=== PATIENT | female | born 1950 | race Caucasian/White ===

== ENCOUNTER 2017-11-07 11:47 | Outpatient (CLI) | payer MEDICARE ==
[2017-11-07 15:12] LABS: Bilirubin Negative (Negative); Blood, Urine Negative (Negative); Clarity CLEAR (Clear); Glucose, Urine (Dipstick) Negative (Negative); Leukocyte Small (Negative); Nitrite Positive (Negative); Protein, Urine (Dipstick) Negative (Neg-Trace); Specific Gravity, Urine 1.009 (1.002-1.036); Urobilinogen 0.2 mg/dL (0.2-1.0)
[2017-11-07 15:13] LABS: #Basophils 0.1 thou/uL (0.0-0.2); #Eosinphils 0.1 thou/uL (0.0-0.7); #Lymphocytes 2.1 thou/uL (1.20-3.40); #Monocytes 0.7 thou/uL (0.11-0.59); #Neutrophils 5.5 thou/uL (1.40-6.50); %Basophils 0.6 % (0.0-1.0); %Eosinophils 1.7 % (0.0-10.0); %Lymphocytes 24.9 % (21.0-51.0); %Monocytes 8.2 % (0.0-10.0); %Neutrophils 64.5 % (42.0-75.0); Hemoglobin 10.8 g/dL (12.0-16.0); Mean Corpuscular Hemoglobin 25.3 pg (27.0-31.0); Mean Corpuscular Volume 81.5 fl (81.0-99.0); Mean Platelet Volume 7.1 fL (7.4-10.4); Platelet Count 368 thou/uL (130-400); RBC Distribution Width 15.5 % (11.5-14.5); Red Blood Cell (RBC) Count 4.26 mill/uL (4.20-5.40); White Blood Cell (WBC) Count 8.6 thou/uL (4.8-10.8)
[2017-11-07 15:18] LABS: Bacteria/HPF 4+ HPF (None Seen); Hyaline Casts/LPF 0-3 HYALINE CAST LPF (0-3 Hyaline); Pathc Cast-AUWi Flag 0.13 (0-2.49); RBC/HPF 0-3 HPF (0-3); Squamous Epithelial 0-3 HPF (0-3)
[2017-11-07 15:20] LABS: PTT 27.4 SEC (22.9-36.1); Prothrombin Time 12.9 SEC (12.0-14.7)
[2017-11-07 15:30] LABS: Anion Gap 13 mmol/L (10-20); BUN (Urea Nitrogen) 19 mg/dL (9.8-20.1); Calc. Creatinine Clearance 0 mL/min (70-130); Calcium 9.5 mg/dL (7.8-10.44); Carbon Dioxide 27 mmol/L (23-31); Chloride 102 mmol/L (98-107); Estimated GFR-MDRD 70; Glucose 77 mg/dL (80-115); Potassium 4.2 mmol/L (3.5-5.1); Sodium 138 mmol/L (136-145)
--- NOTE | 2017-11-07 23:46 | EKG ---
Test Reason : Blood Pressure : / mmHG Vent. Rate : 074 BPM Atrial Rate : 074 BPM P-R Int : 146 ms QRS Dur : 082 ms QT Int : 396 ms P-R-T Axes : 066 036 051 degrees QTc Int : 439 ms Normal sinus rhythm Normal ECG No previous ECGs available Confirmed by Girish HICKEY ([id number]) on 11/07/2017 11:45:51 PM Referred By: IERO Confirmed By:Girish HICKEY
== END 2017-11-07 11:48 | disposition home or self-care (01) ==
LOC: LABBT 11:47
PROVIDERS: ATTEND Orthopaedic Surgery
DX: Z01.812 Encounter for preprocedural laboratory examination (principal); Z01.810 Encounter for preprocedural cardiovascular examination; M17.11 Unilateral primary osteoarthritis, right knee; Z88.5 Allergy status to narcotic agent; Z88.1 Allergy status to other antibiotic agents
CPT/HCPCS: 80048; 81001; 85025; 85610; 85730; 86850; 86900; 86901; 93005; 93010

== ENCOUNTER 2017-11-13 06:30 | Day surgery (SDC) | payer MEDICARE ==
[2017-11-13] MEDS ORDERED: CEFAZOLIN/Water 2 GM/20 ML SYRINGE ONE (07:36)
[2017-11-13] MEDS ORDERED: Tranexamic Acid 1,000 MG/100 ML BAG ONE ×2 (07:36→11:39)
[2017-11-13] MEDS ORDERED: Vancomycin HCl 1.5 GM, Admixture Fee 1 EACH in Sodium Chloride 0.9% 250 ML 300 ML IVPB SCH (07:45)
[2017-11-13] MEDS ORDERED: Ropivacaine 0.2% HCl/PF 40 ML ONE (08:23)
[2017-11-13] MEDS ORDERED: Fentanyl 100 MCG/2 ML VIAL ONE ×4 (08:23→13:16)
[2017-11-13] MEDS ORDERED: Midazolam HCl 2 mg/2 ml Vial ONE (08:23)
[2017-11-13] MEDS ORDERED: Promethazine HCl 25 MG/ML VIAL IM PRN ×3 (08:46→11:38)
[2017-11-13] MEDS ORDERED: Zolpidem Tartrate 5 MG TAB PO PRN ×2 (08:46→11:38)
[2017-11-13] MEDS ORDERED: Ondansetron HCl/PF 4 MG/2 ML Vial IVP PRN ×3 (08:46→11:38)
[2017-11-13] MEDS ORDERED: HYDROcodone/Acetaminophen 10/325 mg Tablet PO PRN (08:46)
[2017-11-13] MEDS ORDERED: Ropivacaine 0.2% 550 ML 550 ML NERVE BLCK SCH (08:46)
[2017-11-13] MEDS ORDERED: traMADol HCl 50 MG TAB PO PRN ×3 (08:46→11:38)
[2017-11-13] MEDS ORDERED: Bupivacaine PF 0.5% 30 ML VIAL ONE (09:29)
[2017-11-13] MEDS ORDERED: Promethazine HCl 25 MG/ML VIAL SLOW IVP PRN (10:09)
[2017-11-13] MEDS ORDERED: Acetaminophen 325 MG TAB PO PRN (11:38)
[2017-11-13] MEDS ORDERED: diphenhydrAMINE 25 MG CAP PO PRN (11:38)
[2017-11-13 11:39] LABS: Bilirubin Negative (Negative); Blood, Urine Negative (Negative); Clarity CLEAR (Clear); Glucose, Urine (Dipstick) Negative (Negative); Leukocyte Negative (Negative); Nitrite Negative (Negative); Protein, Urine (Dipstick) Negative (Neg-Trace); Specific Gravity, Urine 1.013 (1.002-1.036); Urobilinogen 0.2 mg/dL (0.2-1.0)
[2017-11-13 11:42] LABS: Bacteria/HPF None Seen HPF (None Seen); Hyaline Casts/LPF 0-3 HYALINE CAST LPF (0-3 Hyaline); RBC/HPF None Seen HPF (0-3); Squamous Epithelial None Seen HPF (0-3); WBC/HPF None Seen HPF (0-3)
[2017-11-13] MEDS ORDERED: Tranexamic Acid 1,000 MG in Sodium Chloride 0.9% 100 ML IVPB SCH (11:45)
[2017-11-13] MEDS ORDERED: Ropivacaine 0.5% HCl/PF (150 MG/30 ML VIAL) ONE (11:59)
--- NOTE | 2017-11-13 12:23 | OP ---
DATE OF PROCEDURE: 11/13/2017 PREOPERATIVE DIAGNOSIS: Right knee osteoarthrosis with valgus deformity. POSTOPERATIVE DIAGNOSIS: Right knee osteoarthrosis with valgus deformity. PROCEDURE PERFORMED: Right total knee replacement using [employer] pinless navigation. SURGEON: Nigel Mari M.D. FURNITURE DIPPER: Yeison Nicole PA-C. BLOOD LOSS: Minimal. COMPLICATIONS: None. ANESTHESIA: She had general anesthetic. She had a preoperative block. IMPLANTS: To the right knee is a [employer] total knee system. The femur was a size 5 crucia te retaining size 5 femur, her tibial baseplate was a universal size 4 tibial baseplate. We used a 4 x 9 mm X3 tibial bearing and an asymmetric 27 x 8 X3 patella. DISPOSITION: She did go to the recovery room in stable condition. INDICATIONS: A 67-year-old female with multiple medical conditions who presents with unrelenting omer n to the right knee. At this time, she wished to have her knee replaced. Of note, preoperatively wi th the patient asleep, her range of motion was approximately 10 to 85 or 90 degrees. Postoperatively on the table, she was full extension to 125. PROCEDURE IN DETAIL: After all appropriate consent forms were explained and signed, the patient was t aken back to the Operating Room and at this time was given general anesthetic. Once the level of anes thesia was appropriate, a well-padded tourniquet was placed on the right leg and the leg was then pre pped and draped in standard surgical fashion. The limb was exsanguinated and tourniquet taken up to 3 00 mmHg. Midline incision was made with a 10 blade down through the skin and subcutaneous tissue. Bov ie electrocautery was used to coagulate any brisk venous bleeding. A new blade was used to make a med ial parapatellar arthrotomy. Small subperiosteal release was performed medially and excess fat pad wa s removed. The knee was flexed up to gain access to the femur. The femur was navigated and distal fem oral resection was made. Epicondylar access was used to align our sizing jig and this was pinned in p lace. We sized our femur to be a size 4, 4:1 cutting block was applied and pinned. Anterior and poste rior chamfer cuts were then made. We navigated out our proximal tibia and made our proximal tibial re section. Spreaders were used to remove any posterior osteophytes off the back of the femur as well as remaining meniscal tissue. A long alignment jorge was then used to achieve correct rotation of our tib ial baseplate and a size 4 was chosen. This was pinned in place. We trialed the polyethylene and a 4 x 9 mm X3 polyethylene gave us full extension and good stability throughout range of motion. Two towe l clips and a saw were used to cut our patella. Three lug nuts were drilled and 27 x 8 X3 patella was trialed which sat nicely in the trochlear groove. We then drilled our femur and punched our tibia. A ll components were removed. The knee was thoroughly irrigated and dried. Cement was mixed into the ce ment gun on the back table. Components were then placed. The knee was held out in full extension unti l the cement had dried. All excess bone cement was removed. Multiple #2 Vicryl stitches as well as a Quill was used to close our extensor mechanism. 0 Quill followed by a running Monoderm was then used to close the skin. Surgicel glue was then used on the skin. Once this had dried, soft tissue dressin g was applied to the limb, tourniquet was let down, and the toes pinked up nicely. The patient was t hen awakened and taken to the Recovery Room in stable condition. All counts were correct at the end o f the case. The patient did receive preoperative IV antibiotics. The patient was injected with Expar el for postoperative pain relief.
[2017-11-13] MEDS ORDERED: Acetaminophen 1,000 MG in Premix Bag 1 BAG IVPB PRN (12:29)
[2017-11-13] MEDS ORDERED: Ketorolac Tromethamine 30 MG/ML VIAL ONE (12:37)
[2017-11-13] MEDS ORDERED: Ondansetron HCl/PF 4 MG/2 ML Vial ONE (12:37)
[2017-11-13] MEDS ORDERED: PROPOFOL 200 MG/20 ML VIAL ONE (12:37)
[2017-11-13] MEDS ORDERED: Dextrose 5% in Water 1,000 ML IV PRN (13:54)
[2017-11-13] MEDS ORDERED: Insulin Regular 300 UNITS/3 ML VIAL SC PRN ×2 (13:54)
[2017-11-13] MEDS ORDERED: Dextrose 50% Abboject 50 ML SYRINGE SLOW IVP PRN (13:54)
--- NOTE | 2017-11-13 13:58 | PDOC.PN ---
- Subjective Encounter Start Date: 11/13/17 Encounter Start Time: 13:30 Patient seen and examined in PACU. No new complaints. Follows Sammi Rocha. No overnight events - Objective MAR Reviewed: Yes EKG Reviewed by me: Yes (Tele SR) Phys Exam - Physical Examination Constitutional: NAD Respiratory: no wheezing, no rales, no rhonchi Cardiovascular: RRR, no rub Gastrointestinal: soft, non-tender, positive bowel sounds Musculoskeletal: no edema Neurological: non-focal, moves all 4 limbs Dx/Plan - Plan DVT proph w/SCDs IMPRESSION: 1. DM2 2. Diabetic Neuropathy 3. HTN 4. DJD 5. Overactive bladder / CKD 3/ Dyslipidemia / GERD PLAN: * Add mild sliding scale * Cont Gabapentin (takes 3 times daily - ordered for daily - will add PRN) * Cont Lis-HCTZ with holding parameters * Cont Metformin * Cont Oxybutinin * PRN BP meds * Pt is not on Statins - PCP to address. * Resume PPI * Full code. Makes her own decision with the help of . * Will follow. Thank you for this consultation. Laboratory Tests 07/24/17 07/24/17 11/07/17 10:15 10:15 12:43 BUN 19 Creatinine 0.82 Hemoglobin A1c 5.9 Triglycerides 224 H Cholesterol 239 H LDL Cholesterol, Calc 130 HDL Cholesterol 64 Review of Systems - Review of Systems Respiratory: negative: Cough, Dry, Shortness of Breath, Hemoptysis, SOB with Excertion, Pleuritic Pain, Sputum, Wheezing Cardiovascular: negative: chest pain, palpitations, orthopnea, paroxysmal nocturnal dyspnea, edema, light headedness Gastrointestinal: negative: Nausea, Vomiting, Abdominal Pain, Diarrhea, Constipation, Melena, Hematochezia - Medications/Allergies Allergies/Adverse Reactions: Allergies Allergy/AdvReac Type Severity Reaction Status Date / Time codeine Allergy WELANH, Verified 11/07/17 12:09 RASH, ITCHING, N/V Tetracyclines Allergy Verified 11/07/17 12:09 Medications: Current Medications Acetaminophen (Tylenol) 650 mg PO Q4H PRN PRN Reason: YING/ T > 101F; Mild Pain (1-3) Hydrocodone Bitart/Acetaminophen ([place] 10/325) 1 tab PO Q4H PRN PRN Reason: Pain (1-3) Hydrocodone Bitart/Acetaminophen ([place] 10/325) 2 tab PO Q4H PRN PRN Reason: PAIN (4-6) Aspirin (Aspirin) 325 mg PO BID [facility] Cefazolin Sodium (Ancef) 2 gm SLOW IVP 0700,1500,2300 [facility] Stop: 11/13/17 23:01 Dextrose/Water (Dextrose 50%) 25 gm SLOW IVP PRN PRN PRN Reason: Hypoglycemia Diphenhydramine HCl (Benadryl) 25 mg PO Q6H PRN PRN Reason: Itching Diphenhydramine HCl (Benadryl) 25 mg PO DAILY [facility] Fentanyl (Sublimaze) 50 mcg IV Q1H PRN PRN Reason: Pain Ferrous Gluconate (Fergon) 324 mg PO BID [facility] Gabapentin (Neurontin) 300 mg PO QAM [facility] Gabapentin (Neurontin) 300 mg PO TID PRN PRN Reason: Neuropathy Glucagon (Glucagon) 1 mg IM PRN PRN PRN Reason: Hypoglycemia Lisinopril/HCTZ (Prinizide 20-25) 1 tab PO QAM [facility] Vancomycin HCl 1.5 gm/Miscellaneous Medication 1 each/ Sodium Chloride 300 mls @ 200 mls/hr IVPB WILLCALL [facility] Ropivacaine (Ropivacaine 0.2% 550 Ml) 550 mls @ 0 mls/hr NERVE BLCK INF TYRONE PRN Reason: As Directed Sodium Chloride (Normal Saline 0.9%) 1,000 mls @ 100 mls/hr IV .Q10H [facility] Tranexamic Acid 1,000 mg/ (Sodium Chloride) 110 mls @ 200 mls/hr IVPB ONE [facility] Stop: 11/13/17 14:00 Vancomycin HCl 1.5 gm/ Sodium (Chloride) 300 mls @ 200 mls/hr IVPB 1900 [facility] Stop: 11/13/17 20:29 Acetaminophen 1,000 mg/ Device 100 mls @ 400 mls/hr IVPB Q6H PRN PRN Reason: Fever/Mild Pain Stop: 11/14/17 12:30 Dextrose/Water (D5w) 1,000 mls @ 0 mls/hr IV .Q0M PRN; As Directed PRN Reason: Hypoglycemia Insulin Human Regular (Humulin R) 0 units SC .MILD SLIDING SCALE PRN PRN Reason: Mild Correctional Scale Insulin Human Regular (Humulin R) 0 units SC .BEDTIME SLIDING SC PRN PRN Reason: Bedtime Correctional Scale Iron/Minerals/Multivitamins (Theragran M) 1 tab PO DAILY [facility] Ketorolac Tromethamine (Toradol) 15 mg IVP Q6HR [facility] Stop: 11/15/17 06:01 Metformin HCl (Glucophage) 500 mg PO BID [facility] Ondansetron HCl (Zofran) 4 mg IVP Q6H PRN PRN Reason: Nausea/Vomiting Oxybutynin Chloride (Ditropan) 5 mg PO QAM [facility] Pantoprazole Sodium (Protonix) 40 mg PO DAILY [facility] Promethazine HCl (Phenergan) 12.5 mg IM Q4H PRN PRN Reason: Nausea/Vomiting Senna/Docusate Sodium (Senokot S) 2 tab PO BID [facility] Sodium Chloride (Flush - Normal Saline) 10 ml IVF PRN PRN PRN Reason: Saline Flush Tramadol HCl (Ultram) 100 mg PO Q6H PRN PRN Reason: Mild Pain (1-3) Zolpidem Tartrate (Ambien) 5 mg PO HSPRN PRN PRN Reason: Insomnia
[2017-11-13] MEDS ORDERED: hydrALAZINE 20 MG/ML VIAL SLOW IVP PRN (14:04)
[2017-11-13] MEDS: Fentanyl 100 MCG/2 ML VIAL IV PRN ×2 (14:14→15:15)
[2017-11-13] MEDS: Sodium Chloride 0.9% 1,000 ML IV SCH ×2 (14:26→22:45)
[2017-11-13] MEDS: Ketorolac Tromethamine 30 MG/ML VIAL IVP SCH ×2 (15:01→18:55)
[2017-11-13] MEDS: Gabapentin 300 MG CAP PO PRN (15:15)
[2017-11-13] MEDS: HYDROcodone/Acetaminophen 10/325 mg Tablet PO PRN (16:06)
[2017-11-13] MEDS: CEFAZOLIN/Water 2 GM/20 ML SYRINGE SLOW IVP SCH (16:08)
[2017-11-13] MEDS ORDERED: Vancomycin HCl 1.5 GM in Sodium Chloride 0.9% 250 ML 300 ML IVPB SCH (19:00)
[2017-11-13 20:07] VITALS: BMI 32.3
[2017-11-13] MEDS: Ferrous Gluconate 324 MG TAB PO SCH (20:34)
[2017-11-13] MEDS: Aspirin 325 MG TAB PO SCH (20:35)
[2017-11-13] MEDS: Senokot S 8.6-50 MG TAB PO SCH (20:35)
[2017-11-13] MEDS: metFORMIN 500 MG TAB PO SCH (20:35)
[2017-11-14] MEDS: CEFAZOLIN/Water 2 GM/20 ML SYRINGE SLOW IVP SCH
[2017-11-14] MEDS: Ketorolac Tromethamine 30 MG/ML VIAL IVP SCH ×5 (00:17→23:45)
[2017-11-14 04:35] LABS: Hemoglobin 8.2 g/dL (12.0-16.0); Mean Corpuscular Hemoglobin 25.6 pg (27.0-31.0); Mean Corpuscular Volume 80.2 fl (81.0-99.0); Mean Platelet Volume 6.6 fL (7.4-10.4); Platelet Count 233 thou/uL (130-400); RBC Distribution Width 15.1 % (11.5-14.5); Red Blood Cell (RBC) Count 3.19 mill/uL (4.20-5.40); White Blood Cell (WBC) Count 6.6 thou/uL (4.8-10.8)
[2017-11-14] MEDS: Sodium Chloride 0.9% 1,000 ML IV SCH ×2 (05:55→19:39)
[2017-11-14] MEDS: Aspirin 325 MG TAB PO SCH ×2 (08:03→21:06)
[2017-11-14] MEDS: Ferrous Gluconate 324 MG TAB PO SCH ×2 (08:04→21:07)
[2017-11-14] MEDS: Gabapentin 300 MG CAP PO SCH (08:04)
[2017-11-14] MEDS: Oxybutynin 5 MG TAB PO SCH (08:04)
[2017-11-14] MEDS: metFORMIN 500 MG TAB PO SCH ×2 (08:04→21:07)
[2017-11-14] MEDS: diphenhydrAMINE 25 MG CAP PO SCH (08:04)
[2017-11-14] MEDS: Senokot S 8.6-50 MG TAB PO SCH ×2 (08:05→21:07)
[2017-11-14] MEDS: Lisinopril/Hydrochlorothiazide 20/25 mg Tablet PO SCH (08:05)
[2017-11-14] MEDS: Multivitamin W/ Minerals 1 TAB PO SCH (08:07)
[2017-11-14] MEDS ORDERED: Lisinopril/Hydrochlorothiazide 20/25 mg Tablet PO SCH (09:00)
[2017-11-14] MEDS: HYDROcodone/Acetaminophen 10/325 mg Tablet PO PRN ×2 (13:07→19:02)
[2017-11-14] MEDS: Gabapentin 300 MG CAP PO PRN (19:02)
[2017-11-15] MEDS: HYDROcodone/Acetaminophen 10/325 mg Tablet PO PRN ×2 (03:03→08:34)
[2017-11-15] MEDS: Gabapentin 300 MG CAP PO PRN (03:09)
[2017-11-15] MEDS: Sodium Chloride 0.9% 1,000 ML IV SCH (03:14)
[2017-11-15] MEDS: Ketorolac Tromethamine 30 MG/ML VIAL IVP SCH (05:09)
[2017-11-15 06:24] LABS: Hemoglobin 7.9 g/dL (12.0-16.0); Mean Corpuscular HGB CONC 32.2 g/dL (32.0-36.0); Mean Corpuscular Hemoglobin 25.7 pg (27.0-31.0); Mean Corpuscular Volume 79.9 fl (81.0-99.0); Mean Platelet Volume 6.7 fL (7.4-10.4); Platelet Count 235 thou/uL (130-400); RBC Distribution Width 15.3 % (11.5-14.5); Red Blood Cell (RBC) Count 3.06 mill/uL (4.20-5.40); White Blood Cell (WBC) Count 6.6 thou/uL (4.8-10.8)
[2017-11-15] MEDS: Aspirin 325 MG TAB PO SCH (08:30)
[2017-11-15] MEDS: Gabapentin 300 MG CAP PO SCH (08:31)
[2017-11-15] MEDS: Lisinopril/Hydrochlorothiazide 20/25 mg Tablet PO SCH (08:31)
[2017-11-15] MEDS: diphenhydrAMINE 25 MG CAP PO SCH (08:32)
[2017-11-15] MEDS: metFORMIN 500 MG TAB PO SCH (08:32)
[2017-11-15] MEDS: Ferrous Gluconate 324 MG TAB PO SCH (08:32)
[2017-11-15] MEDS: Multivitamin W/ Minerals 1 TAB PO SCH (08:32)
[2017-11-15] MEDS: Senokot S 8.6-50 MG TAB PO SCH (08:33)
[2017-11-15] MEDS: Oxybutynin 5 MG TAB PO SCH (08:33)
[2017-11-15 08:35] VITALS: BP 155/71
[2017-11-15 10:38] VITALS: TEMP 97.1
== END 2017-11-15 12:48 | disposition home health service (06) ==
LOC: SDC 06:30 → SJJU 11:38 → EDSTATUS 13:00 → SDC 11-15 12:48
PROVIDERS: ATTEND Orthopaedic Surgery
PROC: 0SRC069 Replacement of Right Knee Joint with Oxidized Zirconium on Polyethylene Synthetic Substitute, Cemented, Open Approach (ICD-10-PCS; principal; 2017-11-13)
DX: M17.11 Unilateral primary osteoarthritis, right knee (principal); M21.061 Valgus deformity, not elsewhere classified, right knee; E11.40 Type 2 diabetes mellitus with diabetic neuropathy, unspecified; E78.5 Hyperlipidemia, unspecified; E11.22 Type 2 diabetes mellitus with diabetic chronic kidney disease; I12.9 Hypertensive chronic kidney disease with stage 1 through stage 4 chronic kidney disease, or unspecified chronic kidney disease; N18.3 Chronic kidney disease, stage 3 (moderate); K21.9 Gastro-esophageal reflux disease without esophagitis; N32.81 Overactive bladder; Z79.82 Long term (current) use of aspirin; Z79.1 Long term (current) use of non-steroidal anti-inflammatories (NSAID); Z79.84 Long term (current) use of oral hypoglycemic drugs; Z79.899 Other long term (current) drug therapy; Z88.1 Allergy status to other antibiotic agents; Z88.5 Allergy status to narcotic agent; Z98.84 Bariatric surgery status; Z90.89 Acquired absence of other organs; Z90.710 Acquired absence of both cervix and uterus; Z98.891 History of uterine scar from previous surgery; Z98.890 Other specified postprocedural states
CPT/HCPCS: 27447; 81001; 82962; 85027; 87086; 96374; 97116 ×2; 97139 ×2; 97150; 97530; A4306; C1713; C1776; G8978; G8979; 36415; 36416; J0131; J1815; J1885; J2250; J2405; J2704; J2795; J3010; J3370; J7050; S0020

== ENCOUNTER 2023-05-17 07:29 | Outpatient (CLI) | payer MEDICARE | END 2023-05-17 07:30 | disposition home or self-care (01) | LOC: SCSMRI 07:29 | PROVIDERS: ATTEND Family Medicine | DX: M47.26 Other spondylosis with radiculopathy, lumbar region (principal); M51.16 Intervertebral disc disorders with radiculopathy, lumbar region; M48.061 Spinal stenosis, lumbar region without neurogenic claudication; M89.38 Hypertrophy of bone, other site | CPT/HCPCS: 72100; 72148 ==